=== PATIENT | female | born 1985 | race Caucasian/White ===

== ENCOUNTER 2021-05-30 15:54 | Emergency (ER) | payer OTHER ==
[~2021-05-30 15:54] MED LIST: ASPIRIN CHEWABL81 MG PO; CLARITIN-D 121 EACH PO; METFORMIN HCL500 MG PO; PRAVACHOL20 MG PO; PROAIR HFA8.5 GM INH; SINGULAIR10 MG PO; ULTRAM50 MG PO; ZOFRAN ODT 4 MG4 MG PO; ZOFRAN ODT 4 MG4 MG SL; ZOLOFT50 MG PO
[2021-05-30 19:33] LABS: HEMOGLOBIN 15.1 gm/dl (12.3-15.3); RED BLOOD COUNT 4.72 M/UL (4.00-5.10)
[2021-05-30 19:56] LABS: BUN/CREATININE RATIO 18 (0-10)
[2021-05-30] MEDS ORDERED: CEPHALEXIN500 M1 PO (20:58)
[2021-05-30] MEDS ORDERED: BACTRIM DS TAB1 EACH PO (20:58)
== END 2021-05-30 21:04 | disposition home or self-care (01) ==
LOC: ER1 15:54
PROVIDERS: Physician Assistant
DX: L03.311 Cellulitis of abdominal wall (principal); Z48.01 Encounter for change or removal of surgical wound dressing
CPT/HCPCS: 80048; 83605; 85025; 99283